=== PATIENT | female | born 1990 | race Caucasian/White ===

== ENCOUNTER 2016-06-27 17:59 | Emergency (ER) | payer SELFPAY ==
[2016-06-27 18:05] VITALS: BP 150/94; PULSE 116; TEMP 98.4; BMI 44.1
--- NOTE | 2016-06-27 18:11 | EDPRACDOC ---
- General Information Chief Complaint: Flu-Like Symptoms Stated Complaint: CP & INTO RT SIDE COUGH CONGESTION Time Seen by Provider: 06/27/16 18:06 Mode Of Arrival: Car Home Medications: Home Medications Ranitidine [Zantac] 300 mg PO DAILY 03/13/15 Oxycodone HCl [Roxicodone] 1 - 2 tabs PO Q4H PRN 03/14/15 Amoxicillin Trihydrate [Amoxicillin] 500 mg PO TID #30 tab 06/27/16 Ibuprofen Tablet [Motrin] 800 mg PO TID PRN #30 tab 06/27/16 Promethazine Dextromethorphan [Phenergan DM] 5 ml PO Q6 PRN #120 ml 06/27/16 Allergies/Adverse Reactions: Allergies Allergy/AdvReac Type Severity Reaction Status Date / Time No Known Allergies Allergy Verified 06/27/16 18:02 - History of Present Illness Onset: th HPI: PT COMPLAINS OF SINUS CONGESTION, COUGH PROD OF CLEAR PHLEGM, CHILLS, "TIGHTNESS " IN HER CHEST THAT DEVELOPED AFTER WAKING UP TO GO TO WORK TONIGHT. NO SOBR, N /V/D. Current Symptoms: Reports: Cough, Headache, Nasal Symptoms, Sore Throat, Myalgia Shortness of Breath: None Cough: Reports: Productive, Clear Rhinorrhea: Reports: Clear Ear Symptoms: Reports: None Fever Severity/Quality: Reports: no fever Oral Intake: Normal Urinary Output: Normal Relevant History of: None Associated Signs & Symptoms:: Reports: Cough, Headache, Nasal Symptoms, Sore Throat, Myalgia ED Past Medical History - History Reviewed Yes Nurses notes reviewed and agree except as marked - Patient Medical History GI/ History: Denies: Urinary Tract Infection Systemic History: Reports: Anemia (WITH ). Denies: Cancer, Lupus Surgical History: Reports: Cholecystectomy, Tonsillectomy/Adnoidectomy, Other ( BTL) - Family Medical History Reports: Cancer (grandparent). Denies: Hypertension, Diabetes, Stroke, Cardiac Disorders - Social Medical History Smoking Status: Heavy tobacco smoker (5 or more cigarettes/day or daily pipe/ cigar) EDM Review of Systems - Review of Systems Constitutional: Chills Eyes: negative: Blurred Vision, Double Vision Ears: negative: Drainage Throat: Pain Nose: Congestion, Discharge Respiratory: Cough. negative: Shortness of Breath, Wheezing Cardiovascular: Chest Pain. negative: Palpitations Gastrointestinal: negative: Diarrhea, Nausea, Pain, Vomiting Genitourinary: negative: Dysuria, Frequency Neurological: negative: Dizziness, Headache, Numbness, Weakness Musculoskeletal: No Symptoms Reported Integumentary: No Symptoms Reported - Physical Exam Constitutional: Alert (Awake), No apparent distress Oriented to: Time, Person, Place Last recorded Vital Signs: Last Vital Signs Temp 98.4 F 06/27/16 18:03 Pulse 116 06/27/16 18:03 Resp 22 06/27/16 18:03 BP 150/94 06/27/16 18:03 Pulse Ox 99 06/27/16 18:03 Oxygen Pulse Oxygen Saturation 99 O2 Device Room Air Oxygen Flow Rate Fraction of Inspired Oxygen ( FIO2) - HEENT Head: Normal ( normocephalic) Eye Exam: Normal (PERRL, EOMI, Sclera white) Oropharynx: Normal (Pharynx:Moist without exudate,Gums-no swelling) Tympanic Membrane: Dull ENT EAC: Normal TMJ: Normal Nose: No Symptoms Reported (septum midline) Neck: Normal (FROM, trachea at midline) HEENT Comment: BILATERAL MAXILLARY SINUSES TTP - Respiratory/Cardiovascular Respiratory: Normal - CTA (BBS clear to auscultation without adventitious sounds ) Cardiovascular: Normal (RRR without murmur, gallop or rub) - Integumentary Skin: Normal, Warm, Dry Lymphatics: Normal (no adenopathy) - Neurologic Memory Impaired: Normal Motor Function: Normal (Normal tone, Pulses 2+ No cyanosis or edema, FROM) Cranial Nerve: Normal (CN II-X11 intact sensation, strength 5/5) Cerebellar: Normal Mood Description: Normal Perception: Normal - Differential Diagnosis Bronchitis, Otitis Media, Pneumonia, Sinusitis, URI Decision Time to Discharge: 18:12 - Departure Disposition: Home Condition: Stable Final Diagnosis: Acute sinusitis Instructions: Sinusitis (ED) Education/Counseling Given To: Patient Education/Counseling Given Regarding: Diagnosis, Treatment, Prognosis, Follow Up Referrals: Samuel Stanton MD [Staff Physician] - One Week Prescriptions: Amoxicillin Trihydrate [Amoxicillin] 500 mg PO TID #30 tab Ibuprofen Tablet [Motrin] 800 mg PO TID PRN #30 tab PRN Reason: Pain Promethazine Dextromethorphan [Phenergan DM] 5 ml PO Q6 PRN #120 ml PRN Reason: Cough Forms: Excuse Note Additional Instructions: Rest, drink plenty of fluids, use Tylenol every 4 hours and Motrin every 6 hours as needed for pain or fever, return to the ED for any worsening symptoms or concerns.
== END 2016-06-27 18:18 | disposition home or self-care (01) ==
LOC: EDMC 17:59
DX: J01.90 Acute sinusitis, unspecified (principal)
CPT/HCPCS: 99282